=== PATIENT | male | born 1970 | race Caucasian/White ===

== ENCOUNTER 2020-01-02 22:06 | Observation (INO) ==
[2020-01-03 00:13] LABS: Basophils # 0.1 10*3/uL (0.0-0.2); Basophils % 0.6 % (0.0-0.8); Eosinophils # 0.2 10*3/uL (0.0-0.87); Eosinophils % 1.4 % (0.00-10.9); Hemoglobin 16.3 GM/DL (14.0-18.0); Immature Granulocytes % 0.4 %; Immature Granulocytes Absolute 0.04 #; Lymphocytes # 1.8 10*3/uL (1.4-4.0); Lymphocytes % 16.9 % (21.2-54.2); Mean Corpuscular Volume 84.1 FL (87-102); Mean Platelet Volume 9.6 FL (9.6-12.0); Monocytes % 8.6 % (1.7-12.7); Neutrophils % 72.1 % (38.7-73.9); Platelet Count 280 T/CUMM (130-400); Red Blood Count 5.71 MC/CUMM (3.8-5.5); Red Cell Distribution Width 12.7 % (9.3-17.3); White Blood Count 10.4 T/CUMM (4-12)
[2020-01-03 00:41] LABS: Albumin 3.6 G/DL (3.4-5.0); Bilirubin,Total 0.6 MG/DL (0.2-1.0); Calcium 9.3 MG/DL (8.5-10.1); Osmolality,Calculated 271.2 MOS/KG (273-304); Total Protein 7.9 G/DL (6.4-8.3)
[2020-01-03] MEDS ORDERED: ENOXAPARIN 30 MG/0.3 ML SYRINGE SUBCUT STA (00:54)
[2020-01-03] MEDS ORDERED: ENOXAPARIN 100 MG/ML SYRINGE SUBCUT ONE (01:04)
[2020-01-03] MEDS ORDERED: ONDANSETRON 4 MG/2 ML VIAL IV PRN (02:14)
[2020-01-03] MEDS ORDERED: hydrALAZINE 20 MG/1 ML VIAL IV PRN (02:14)
[2020-01-03] MEDS ORDERED: GLUCAGON 1 MG VIAL IM PRN (02:14)
[2020-01-03] MEDS ORDERED: ACETAMINOPHEN 325 MG TABLET PO PRN (02:14)
[2020-01-03] MEDS ORDERED: cloNIDine 0.1 MG TABLET PO STA (02:14)
[2020-01-03] MEDS ORDERED: DEXTROSE 10% 250 ML BAG IV PRN (02:25)
[2020-01-03 02:43] LABS: Risk Ratio 8.76; VLDL CHOLESTEROL 57.6 MG/DL
[2020-01-03] MEDS ORDERED: amLODIPine 5 MG TABLET PO SCH (09:00)
[2020-01-03] MEDS: RIVAROXABAN 15 MG TABLET PO SCH ×2 (09:02→17:19)
[2020-01-03 14:04] LABS: INR 1.2
[2020-01-03 14:05] LABS: Partial Thromboplastin Time 43.5 SECS (23.9-33.8)
[2020-01-03] MEDS ORDERED: LACTATED RINGERS 1,000 ML IV ONE (17:27)
[2020-01-03 19:11] VITALS: BP 139/89
== END 2020-01-03 19:10 | disposition home or self-care (01) ==
LOC: N.EDINP 22:06 → N.ED 22:06 → N.TELES 01-03 03:10
PROVIDERS: ADMIT Family Medicine; ATTEND Family Medicine